=== PATIENT | female | born 1990 | race Caucasian/White ===

== ENCOUNTER 2020-10-16 18:54 | Emergency (ER) | payer OTHER ==
[2020-10-16 18:59] VITALS: BP 136/89; PULSE 67; RESP 18; TEMP 98.5
--- NOTE | 2020-10-16 19:32 | XR ---
Result: History: Pain. Comparison: None available. Technique: 4 views of the left knee. Findings: No acute fracture or dislocation is seen. The visualized osseous structures are in anatomic alignmen t. The joint spaces are preserved. There is no significant knee joint effusion. Impression: Grossly unremarkable radiographs.
--- NOTE | 2020-10-16 19:35 | ED ---
Lower Extremity Injury HPI - General Chief Complaint: Extremity Injury, Lower Stated Complaint: Left knee injury Time Seen by Provider: 10/16/20 19:08 Source: patient Mode of arrival: wheelchair Limitations: no limitations - History of Present Illness Initial Comments: 30-year-old female presenting today for chief complaint of left knee pain. Patient states while she was at work earlier today she went to turn and she actually left her foot planted twisting her knee. She states she felt sudden onset of anterior knee pain she states she attempted to walk it off however initially almost brought her to her knees. She denies any head injuries injury to the ankle hips back. Patient states that she still feels leg is able to walk however has become more tender throughout the day. She denies posterior pain no dislocations. Patient states because the pain has persisted she thought it was best to have it evaluated. upon arrival patient appears well nontoxic in no acute distress. - Related Data Allergies Allergy/AdvReac Type Severity Reaction Status Date / Time No Known Allergies Allergy Verified 10/16/20 18:58 Review of Systems ROS Statement: Those systems with pertinent positive or pertinent negative responses have been documented in the HPI. ROS Other: All systems not noted in ROS Statement are negative. Past Medical History Past Medical History: Asthma History of Any Multi-Drug Resistant Organisms: None Reported Past Surgical History: No Surgical Hx Reported Past Psychological History: No Psychological Hx Reported Smoking Status: Never smoker Past Alcohol Use History: None Reported Past Drug Use History: None Reported General Exam - General Exam Comments Initial Comments: General: The patient is awake and alert, in no distress, and does not appear acutely ill. Eye: Pupils are equal, round and reactive to light, extra-ocular movements are intact. No nystagmus. There is normal conjunctiva bilaterally. No signs of icterus. Musculoskeletal: ON gross inspection no obvious deformities/abnormalities, maybe ramez tanterior swelling just inferior to patella. no redness. can weight bear. extensor mechanism intact. Normal ROM, with tenderness. Strength 5/5. Sensation intact. DP pulses equal bilaterally 2+. No obvious laxity Neurological: A&O x 3. CN II-XII intact grossly, There are no obvious motor or sensory deficits. Coordination appears grossly intact. Speech is normal. Skin: Skin is warm and dry and no rashes or lesions are noted. Psychiatric: Cooperative, appropriate mood & affect, normal judgment. Limitations: no limitations Course Vital Signs 10/16/20 18:56 Temperature 98.5 F Pulse Rate 67 Respiratory 18 Rate Blood Pressure 136/89 O2 Sat by Pulse 99 Oximetry Medical Decision Making - Medical Decision Making x-ray negative patient neurovascularly intact. No obvious laxity no history of dislocation. Patient states any immobilizer instructed to follow up with orthopedic surgery take ibuprofen Tylenol for pain and return for any worsening symptoms. Patient discharged appearing well agreeable to this care plan. Disposition Clinical Impression: Left anterior knee pain Disposition: HOME SELF-CARE Condition: Good Instructions (If sedation given, give patient instructions): Knee Sprain (ED) Additional Instructions: Please use medication as discussed. Please follow-up with family doctor in the next 2 days. Recommend using knee immobilizer for all ambulation (walking/getting around) until orthopedic evaluation. Please return to emergency room if the symptoms increase or worsen or for any other concerns. Is patient prescribed a controlled substance at d/c from ED?: No Referrals: Anisha Durán DO [Primary Care Provider] - 1-2 days Elías Bennett PAC [PHYSICIAN [facility]] - 1-2 days Time of Disposition: 19:35
== END 2020-10-16 19:55 | disposition home or self-care (01) ==
LOC: EC 18:54
DX: M25.562 Pain in left knee (principal)
CPT/HCPCS: 73562; 99283; L1830